=== PATIENT | male | born 1955 | race Hispanic/Latino ===

== ENCOUNTER 2018-06-29 12:50 | Emergency (ER) | payer BC ==
--- NOTE | 2018-06-29 13:46 | ED PDOC ---
Arrival/HPI - General Historian: Patient - History of Present Illness Narrative History of Present Illness (Text): 06/29/18 13:41 62 y o male no remarkable PMhx presents to the ED c/o low back pain x 2 weeks that has been worsening for the past 3 days. States that he was moving a piece of luggage at home 2 weeks ago when he felt his lower back give out. Pt states over the past 3 days he felt his lower back worsen thus he decided to come to the ED to get treatment. States he tried PO Naproxen and Ibuprofen 800 mg PO without relief. States no positional changes make the pain better. Rates pain as 9/10, describes it as sharp. Denies headache, dizziness, chest pain, sob, n/v /d/c, abd pain, urinary complaints, or other symptoms. Denies bowel/bladder incontinence, or associated sciatic-like symptoms. PMHx: none PSurgHx: endoscopic repair of L sciatic nerve Allergies: NKDA Home meds: none Fam hx: denies Soc hx: denies smoking, EtOH or illicit drug use PMD: Dr. Keen Time/Duration: > week (2) <Nav Asher - Last Filed: 06/29/18 15:01> <Xandre Levi - Last Filed: 06/29/18 15:39> - General Chief Complaint: Back Pain Time Seen by Provider: 06/29/18 13:23 Past Medical History - Provider Review Nursing Documentation Reviewed: Yes - Travel History Have you recently traveled outside [place] w/in the past 3 mons?: No - Infectious Disease Hx of Infectious Diseases: None - Musculoskeletal/Rheumatological Hx Back Pain: Yes - Psychiatric Hx Substance Use: No - Surgical History Other/Comment: back sx - Anesthesia Hx Anesthesia: Yes Hx Anesthesia Reactions: No Hx Malignant Hyperthermia: No <Nav Asher - Last Filed: 06/29/18 15:01> Family/Social History - Physician Review Nursing Documentation Reviewed: Yes Family/Social History: No Known Family HX Smoking Status: Never Smoked Hx Alcohol Use: Yes Frequency of alcohol use: Socially Hx Substance Use: No <Nav Asher - Last Filed: 06/29/18 15:01> Allergies/Home Meds <Nav Asher - Last Filed: 06/29/18 15:01> <Xander Levi - Last Filed: 06/29/18 15:39> Allergies/Adverse Reactions: Allergies No Known Allergies Allergy (Verified 06/29/18 13:18) Review of Systems - Physician Review All systems were reviewed & negative as marked: Yes - Review of Systems Musculoskeletal: Arthralgias, Back Pain. absent: Neck Pain, Joint Swelling Neurological: absent: Headache, Dizziness, Focal Weakness <Nav Asher - Last Filed: 06/29/18 15:01> Physical Exam Vital Signs Reviewed: Yes Vital Signs Temp Pulse Resp BP Pulse Ox 06/29/18 13:12 98.5 F 96 H 19 144/85 94 L Temperature: Afebrile Blood Pressure: Hypertensive Pulse: Regular Respiratory Rate: Normal Appearance: Positive for: Well-Appearing, Non-Toxic, Uncomfortable Pain Distress: Severe Mental Status: Positive for: Alert and Oriented X 3 - Systems Exam Head: Present: Atraumatic, Normocephalic Pupils: Present: PERRL Extroacular Muscles: Present: EOMI Conjunctiva: Present: Normal Mouth: Present: Moist Mucous Membranes Neck: Present: Normal Range of Motion. No: JVD, Lymphadenopathy Respiratory/Chest: Present: Clear to Auscultation, Good Air Exchange. No: Respiratory Distress, Accessory Muscle Use, Wheezes, Rales, Rhonchi Cardiovascular: Present: Regular Rate and Rhythm, Normal S1, S2. No: Murmurs, Rub, Gallop Abdomen: Present: Normal Bowel Sounds. No: Tenderness, Distention, Mass/Organomegaly Back: Present: Other (Tenderness to palpation in area of PSIS's b/l; pain with active and passive ROM of lumbar spine in flexion and extension) Upper Extremity: Present: Normal Inspection, Normal ROM, NORMAL PULSES, Neurovascularly Intact, Capillary Refill < 2s. No: Cyanosis, Edema, Temperature Abnormalties Lower Extremity: Present: Normal Inspection, NORMAL PULSES, Normal ROM, Neurovascularly Intact, Capillary Refill < 2 s. No: Edema, CALF TENDERNESS, Temperature Abnormalties Neurological: Present: GCS=15, CN II-XII Intact, Speech Normal, Motor Func Grossly Intact, Normal Sensory Function Skin: Present: Warm, Dry, Normal Color. No: Rashes Psychiatric: Present: Alert, Oriented x 3, Normal Insight, Normal Concentration <Nav Asher - Last Filed: 06/29/18 15:01> Vital Signs Temp Pulse Resp BP Pulse Ox 06/29/18 13:12 98.5 F 96 H 19 144/85 94 L <Xander Levi - Last Filed: 06/29/18 15:39> Medical Decision Making ED Course and Treatment: 06/29/18 13:51 62 y o male no remarkable PMhx presents to the ED c/o acute onset of low back pain. Plan: -Toradol -Flexeril Will continue to monitor and reassess. 06/29/18 14:40 Pt reassessed, states he is feeling better s/p pain meds. Will d/c pt to home at this time. Can follow-up with PMD within 2-3 days of ER discharge. Pt given scripts for Flexeril and Naproxen. Instructed to return to the ED if his symptoms worsen. - Medication Orders Current Medication Orders: Discontinued Medications Cyclobenzaprine HCl (Flexeril) 5 mg PO STAT STA Stop: 06/29/18 13:38 Ketorolac Tromethamine (Toradol) 15 mg IM STAT STA Stop: 06/29/18 13:38 <Nav Asher - Last Filed: 06/29/18 15:01> ED Course and Treatment: 06/29/18 13:53 Patient is a 62 year old male presenting to the emergency department for lower back pain. In agreement with resident note, which includes further HPI details. Patient was seen and evaluated with resident, came up with plan and treatment together. 06/29/18 15:38 pt seen wt resident. low back pain s/p "lifiting suitcase" in er, specifically requests toradol and dc. no direct trauma no lumbar ttp. states will f/u outpt for further imaging. xr low utility in er. neuro intact, no saddle anesthesia, no urinary complaints. - Medication Orders Current Medication Orders: Discontinued Medications Cyclobenzaprine HCl (Flexeril) 5 mg PO STAT STA Stop: 06/29/18 13:38 Ketorolac Tromethamine (Toradol) 15 mg IM STAT STA Stop: 06/29/18 13:38 <Xander Levi - Last Filed: 06/29/18 15:39> - PA / COLOR WORKER / Resident Statement RADHIKA has reviewed & agrees with the documentation as recorded. MD/DO has examined the patient and agrees with the treatment plan. - Scribe Statement The provider has reviewed the documentation as recorded by the Nghiaibkalen Falk All medical record entries made by the Scribe were at my direction and personally dictated by me. I have reviewed the chart and agree that the record accurately reflects my personal performance of the history, physical exam, medical decision making, and the department course for this patient. I have also personally directed, reviewed, and agree with the discharge instructions and disposition. <Xander Levi - Last Filed: 06/29/18 15:39> Disposition/Present on Arrival - Present on Arrival History of DVT/PE: No History of Uncontrolled Diabetes: No Urinary Catheter: No History of Decub. Ulcer: No History Surgical Site Infection Following: None <Nav Asher - Last Filed: 06/29/18 15:01> - Present on Arrival Any Indicators Present on Arrival: No - Disposition Have Diagnosis and Disposition been Completed?: Yes Disposition Time: 15:00 <Xander Levi - Last Filed: 06/29/18 15:39> - Disposition Diagnosis: Low back pain, Muscle spasm of back Disposition: HOME/ ROUTINE Condition: IMPROVED Discharge Instructions (ExitCare): Low Back Pain (DC) Print Language: KHMER Additional Instructions: Please follow-up with your primary care physician within 2-3 days of ER disch arge. Please take medications as prescribed for your low back pain. Should your symptoms recur or worsen, please call your primary care physician or report to your nearest emergency department. Prescriptions: Cyclobenzaprine [Cyclobenzaprine HCl] 10 mg PO DAILY PRN #10 tab PRN Reason: Muscle Spasm RX: Naproxen 500 mg PO BID PRN #14 tab PRN Reason: Pain, Mild (1-3) Referrals: Radha BRUSH,Jose G Malik MD [Family Provider] - Follow up with primary Forms: [employer] ([place])
[2018-06-29 15:17] VITALS: BP 135/69; PULSE 67; RESP 18; TEMP 98.3; O2SAT 99
== END 2018-06-29 15:00 | disposition home or self-care (01) ==
LOC: ED 12:50
DX: M54.5 Low back pain (principal); M62.830 Muscle spasm of back
CPT/HCPCS: 96372; 99283; J1885